=== PATIENT | female | born 1985 | race Hispanic/Latino ===

== ENCOUNTER 2017-05-02 02:53 | Inpatient (IN) | payer BC, SELFPAY ==
[2017-05-02] MEDS ORDERED: niCARdipine 20MG In NaCl 20 MG/200 ML BAG ONE (03:18)
[2017-05-02] MEDS ORDERED: Ondansetron HCl/PF 4 MG/2 ML Vial ONE (03:43)
[2017-05-02 03:51] LABS: Hematocrit 40.1 % (36.0-47.0); Mean Platelet Volume 8.2 fL (7.4-10.4); Red Blood Cell (RBC) Count 5.58 mill/uL (4.20-5.40); White Blood Cell (WBC) Count 11.4 thou/uL (4.8-10.8)
[2017-05-02 04:04] LABS: ALT (SGPT) 11 U/L (8-55); AST (SGOT) 16 U/L (5-34); Acetaminophen Less than 6.0 mcg/mL (10.0-30.0); Alkaline Phosphatase 122 U/L (40-150); Anion Gap 15 mmol/L (10-20); BUN (Urea Nitrogen) 9 mg/dL (7.0-18.7); Bilirubin, Total 0.3 mg/dL (0.2-1.2); CK (CPK) 76 U/L (29-168); Calc. Creatinine Clearance 0 mL/min (70-130); Calcium 9.7 mg/dL (7.8-10.44); Carbon Dioxide 22 mmol/L (22-29); Chloride 105 mmol/L (98-107); Estimated GFR-MDRD 82; Globulin 2.6 g/dL (2.4-3.5); Lipase 21 U/L (8-78); Protein, Total 6.8 g/dL (6.0-8.3); Prothrombin Time 12.9 SEC (12.0-14.7); Salicylate Less than 8.0 mg/dL (15.0-30.0)
[2017-05-02 04:05] LABS: PTT 29.6 SEC (22.9-36.1)
[2017-05-02 04:07] LABS: Troponin I Less than 0.010 ng/mL (< 0.028)
[2017-05-02 04:10] LABS: #Eosinphils 0.2 thou/uL (0.0-0.7); #Lymphocytes 1.6 thou/uL (1.20-3.40); #Monocytes 0.8 thou/uL (0.11-0.59); #Neutrophils 8.8 thou/uL (1.40-6.50); %Basophils 0.2 % (0.0-1.0); %Eosinophils 2.1 % (0.0-10.0); %Lymphocytes 13.9 % (21.0-51.0); %Monocytes 6.7 % (0.0-10.0); Microcytosis SLIGHT = 6-15 cells (100X) (0-5/hpf)
[2017-05-02] MEDS ORDERED: Acetaminophen 650 MG Suppository PR PRN (04:43)
[2017-05-02] MEDS ORDERED: Acetaminophen 325 MG TAB PO PRN ×2 (04:43→11:42)
[2017-05-02] MEDS ORDERED: Bisacodyl 5 MG TAB PO PRN (04:43)
[2017-05-02] MEDS ORDERED: Labetalol HCl 100 MG/20 ML VIAL SLOW IVP PRN (04:57)
[2017-05-02] MEDS ORDERED: niCARdipine 20MG in NaCl 200 ML BAG IVPB PRN (04:57)
[2017-05-02] MEDS ORDERED: niCARdipine HCl 25 MG in Sodium Chloride 0.9% 250 ML 240 ML IVPB PRN (05:02)
[2017-05-02 05:08] LABS: Bilirubin Negative (Negative); Blood, Urine Negative (Negative); Glucose, Urine (Dipstick) Negative (Negative); Ketone, Urine Negative (Negative); Nitrite Negative (Negative); Protein, Urine (Dipstick) 300 mg/dL (Neg-Trace); Urobilinogen 0.2 mg/dL (0.2-1.0)
[2017-05-02 05:10] LABS: Bacteria/HPF None Seen HPF (None Seen); Hyaline Casts/LPF 0-3 HYALINE CAST LPF (0-3 Hyaline); RBC/HPF 0-3 HPF (0-3); Squamous Epithelial 0-3 HPF (0-3); WBC/HPF 0-3 HPF (0-3)
[2017-05-02 05:44] LABS: Amphetamine Detected (NotDetected); Methamphetamine Not Detected (NotDetected)
[2017-05-02 05:45] LABS: Methadone Not Detected (NotDetected)
--- NOTE | 2017-05-02 05:46 | HP ---
PRIMARY CARE PROVIDER: [facility] [place]. CHIEF COMPLAINT: Weakness. HISTORY OF PRESENT ILLNESS: Ms. Alves is a pleasant 31-year-old lady who was seen at [facility] on 05/02/2017. She is able to provide some history. Further history was obtain ed from review of medical records as well as discussion with the emergency room physician, who obtain ed most of the history from Ms. Alves's . Ms. Alves was last known to be doing well around midnight. Around 2:00 a.m., she was found with we akness of the left upper and lower extremities. She also reportedly had a headache yesterday while a t work. Patient denies any chest pain or shortness of breath. She denies any fevers or chills. REVIEW OF SYSTEMS: The following complete review of systems was negative, unless otherwise mentioned in the HPI or below: Constitutional: Weight loss or gain, sense of well-being, ability to conduct usual activities, exerc ise tolerance. Skin/Breast: Rash, itching, changes in hair growth or loss, nail changes, breast lumps, tenderness, swelling, nipple discharge. Eyes: Vision, double vision, tearing, blind spots, pain. ENT/Mouth: Headaches (location, time of onset, duration, precipitating factors), vertigo, lightheade dness, injury. Vision, double vision, tearing, blind spots, pain, nose bleeding, colds, obstruction, discharge, dental difficulties, gingival bleeding, dentures, neck stiffness, pain, tenderness, masses in thyroid or other areas. Cardiovascular: Precordial pain, substernal distress, palpitations, syncope, dyspnea on exertion, or thopnea, nocturnal paroxysmal dyspnea, edema, cyanosis, hypertension, heart murmurs, varicosities, ph lebitis, claudication. Respiratory: Pain, shortness of breath, wheezing, stridor, cough, hemoptysis, fever or night sweats. Gastrointestinal: Poor appetite, dysphagia, indigestion, abdominal pain, heartburn, eructation, naus ea, vomiting, hematemesis, jaundice, constipation, or diarrhea, abnormal stools (luke-colored, tarry, bloody, greasy, foul smelling), flatulence, hemorrhoids, recent changes in bowel habits. Genitourinary: Urgency, frequency, dysuria, nocturia, hematuria, polyuria, oliguria, unusual (or william nge in) color of urine, stones, hesitancy, change in size of stream, dribbling, acute retention or in continence, libido, potency. Musculoskeletal: Pain, swelling, redness or heat of muscles or joints, limitation, of motion, muscul ar weakness, atrophy, cramps. Neurologic/Psychiatric: Convulsions, paralyses, tremor, incoordination, parasthesias, difficulties w ith memory of speech, sensory or motor disturbances, or muscular coordination (ataxia, tremor), emoti onal problems, anxiety, depression, previous psychiatric care, unusual perceptions, hallucinations. Allergy/Immunologic: Skin rash, anemia, bleeding tendency, polydipsia, polyuria, intolerance to heat or cold. PAST MEDICAL HISTORY: Hypertension. PAST SURGICAL HISTORY: None. FAMILY HISTORY: No family history of cerebrovascular accident. SOCIAL HISTORY: The patient denies tobacco use, alcohol use or recreational drug use. ALLERGIES: SULFA. CURRENT MEDICATIONS: Lisinopril, dose to be clarified. PHYSICAL EXAMINATION: GENERAL: Ms. Alves is awake, alert, not in acute distress. VITAL SIGNS: Blood pressure is 184/124. Pulse is 79. She is breathing at rate of 16, and saturatin g 100% on room air. She is afebrile. She is obese. EYES: She is keeping her eyes closed. When she opens them, she has strabismus. She reports that th is is chronic. She is unable to follow finger movements. ENT: Moist mucosal membranes, no oropharyngeal erythema or exudates. NECK: Supple, nontender, normal range of movement. Trachea is midline. RESPIRATORY: Accessory muscles of breathing are not active. Chest wall movements are symmetric bila terally. LUNGS: Clear to auscultation without wheeze, rhonchi or crepitations. CARDIOVASCULAR: S1 and S2 are heard, regular. Peripheral pulses palpable. No carotid bruit, no per icardial rub. ABDOMEN: Soft, nontender, bowel sounds are heard. No hepatomegaly, no splenomegaly. NEUROLOGIC: Pupils are equal and reactive to light. Strabismus as described earlier. Otherwise, cr anial nerves II through XII are intact. Left upper extremity power is 1/5, left lower extremity fawn r is 4/5, power is 5/5 in the right extremities. No focal sensory deficits. Deep tendon reflexes ar e 2+. Plantar reflexes downgoing bilaterally. MUSCULOSKELETAL: Power in the 4 extremities, as described earlier. SKIN: No rashes or subcutaneous nodules. PSYCHIATRIC: Normal mood, normal affect, patient is oriented to person and place, not to time. LYMPHATIC: No cervical lymphadenopathy. LABORATORY DATA AND IMAGING: Ms. Alves's labs and investigations were reviewed. I reviewed her te lemetry monitor, which shows normal sinus rhythm. She is awaiting a 12-lead electrocardiogram. I al so reviewed her chest x-ray, which does not show any pulmonary infiltrates. She had a noncontrast CT scan of the head, which showed bilateral basal ganglia and calcifications, but no acute stroke or bl eed. Laboratory investigations show leukocytosis with 11,400 white cells, of which 77% are neutrophi ls, normal hemoglobin, normal platelet count, INR 1.0, unremarkable comprehensive metabolic profile, negative serum test and elevated TSH of 5.0051. BNP is less than 10. Troponin I is normal . Serum toxicology screen is negative. Urine drug screen is pending. ASSESSMENT AND PLAN: Ms. Alves is a pleasant 31-year-old lady who was seen at [facility] on 05/02/2017. Her problem list includes: 1. Ischemic stroke: Ms. Alves is presenting with an ischemic stroke. The emergency room fabrizio augustine is starting her on TPA. Patient will be admitted to the Critical Care Unit for further management. No blood draws or anticoagulants for the next 24 hours. Neurology service will be consulted. She is also awaiting CT angiogram of the head and neck. 2. Hypertension: Start Cardene drip and p.r.n. IV labetalol. 3. Elevated TSH: Check free T3 and free T4. 4. Leukocytosis: The patient is afebrile. Recheck white count. Check urinalysis to rule out infec tion. Many thanks for allowing me to participate in your patient's care. Please feel free to contact me wi th any questions or concerns. LEVEL OF RISK: High. LEVEL OF COMPLEXITY: High.
[2017-05-02 05:49] LABS: Free T3 4.11 pg/mL (1.71-3.71)
[2017-05-02] MEDS ORDERED: Heparin 10,000 UNITS/1 ML VIAL ONE ×2 (06:16→07:33)
[2017-05-02] MEDS ORDERED: Fentanyl 100 MCG/2 ML VIAL ONE (07:17)
[2017-05-02] MEDS ORDERED: Ondansetron HCl/PF 4 MG/2 ML Vial IVP PRN (07:45)
[2017-05-02] MEDS ORDERED: Sodium Chloride 0.9% 1,000 ML IV SCH (07:45)
[2017-05-02] MEDS ORDERED: Ondansetron ODT 4 MG TAB SL PRN (07:45)
--- NOTE | 2017-05-02 08:15 | RAD ---
PORTABLE CHEST 1 VIEW: Date: 05/02/17 Time: 0339 hours HISTORY: Altered mental status. FINDINGS: The heart size is normal. No focal areas of consolidation, pneumothorax, kassy pulmonary edema, or pl eural effusions are seen. IMPRESSION: No acute process. POS: [facility]
--- NOTE | 2017-05-02 08:24 | CT ---
PRELIMINARY REPORT/[facility]/EMERGENCY AFTER HOURS PROCEDURE: Addendum created by Bhaskar Crane MD on 05/02/2017 3:27 AM Central Time ([place] & [place]) Additional review of the images was performed and there is subtle decreased attenuation involving the right temporal, parietal and frontal lobes with decreased su / white differentiation on the right and early sulcal effacement which are suggestive of an early but large right MCA distribution infarct . Findings discussed with Dr. Rick at 3:24 AM ELECTROSTATIC POWDER COATING TECHNICIAN date of exam. Initial Report created on 05/02/2017 3:20 AM Central Time ([place] & [place]) EXAM: CT Head Without Intravenous Contrast CLINICAL HISTORY: 31 years old, female; Signs and symptoms; Weakness, extremity; Left; Patient HX: Stroke alert TECHNIQUE: Axial computed tomography images of the head/brain without intravenous contrast. COMPARISON: No relevant prior studies available. FINDINGS: Brain: No acute findings. No hemorrhage. No significant white matter disease. No edema. There are mo ateral basal ganglion calcifications. Ventricles: No acute findings. No ventriculomegaly. Bones/joints: No acute findings. No acute fracture. Soft tissues: No acute findings. Sinuses: No acute sinusitis. Nonspecific lobulated mucosal reaction right maxillary sinus. Mastoid air cells: Unremarkable as visualized. No mastoid effusion. IMPRESSION: No acute stroke or bleed. Bilateral basal ganglion calcifications, somewhat atypical for patient of this age. These can be seen as a result of numerous etiologies including disorders of calcium metabolism, Devin disease, carbon monoxide poisoning, and mitochondrial disorders amongst other etiologies. Thank you for allowing us to participate in the care of your patient. Dictated and Authenticated by: Bhaskar Crane MD 05/02/2017 3:20 AM Central Time ([place] & [place]) FINAL REPORT EMERGENCY AFTER HOURS CT OF BRAIN PERFORMED WITHOUT CONTRAST ENHANCEMENT: Date: 05/02/17 HISTORY: Left-sided weakness, stroke symptoms. FINDINGS: The ventricular and cisternal system is within normal limits. There are no signs of intracerebral hem orrhage or extra-axial fluid collections. Basal ganglia calcifications are noted. There is sphenoid and right maxillary sinus mucosal disease noted. IMPRESSION: No acute intracranial abnormalities. This report is in agreement with the preliminary report issued by [facility]. POS: [facility]
--- NOTE | 2017-05-02 08:38 | CON ---
DATE OF CONSULTATION: 05/02/2017 HISTORY OF PRESENT ILLNESS: Ms. Alves is a 31-year-old female with history significant for hypertension and morbid obesity. The history I obtained was from the patient's mother. Ms. Alves was present at home and known to be normal until around midnight where she collapsed with abrupt onset of left hemiparesis. She was brought to the emergency department where she underwent a noncontrast head CT, which was negative for hemorrhage. She underwent TPA administration. She also had a CT angiogram study performed of the head, which suggested occlusion of the M1 segment of the middle cerebral artery. She was densely hemiparetic, but able to speak. She did have increased somnolence. After evaluating the patient and meeting with the patient's mother as well as other family and friends, a decision was made to take her to the angiogram suite for cerebral angiography with the potential for mechanical thrombectomy. I did review with everyone the risks, benefits, and alternatives to treatment. I answered all their questions and they provided informed consent. The plan will be to perform the procedure with subsequent admission to the ICU with subsequent management with our multidisciplinary stroke team. JULISSA
--- NOTE | 2017-05-02 08:55 | CT ---
PRELIMINARY REPORT/[facility]/EMERGENCY AFTER HOURS PROCEDURE: EXAM: CT Brain Perfusion With Intravenous Contrast CLINICAL HISTORY: 31 years old, female; Signs and symptoms; Weakness; Patient HX: Left sided weakness, R/O stroke TECHNIQUE: Axial computed tomography images of the brain with intravenous contrast using cerebral perfusion prot ocol. Post-processing parametric maps were created and reviewed. These include cerebral blood flow, c erebral blood volume and mean transit time. CONTRAST: 140 mL of ISOVUE administered intravenously. COMPARISON: CT Brain WO Con 2017-05-02 03:01 FINDINGS: Cerebral blood flow: There is decreased blood flow in the right frontal and parietal lobes. Cerebral blood volume: There is decreased blood volume in the right frontal and parietal lobes. Mean transit time: There is increased mean transit time in the right frontal and parietal lobes. There is marked narrowing of the right ICA as it enters the skull base, throughout it's canalicular p ortion, with occlusion at the apex. There is also occlusion of the right ophthalmic artery The left I CA is normal. There is occlusion of the origin of the right MCA with mild filling more distally and attenuation of the branches relative to the left. The left MCA appears normal. There is no evidence of aneurysm. The vertebral arteries are patent. The basilar artery is normal in caliber. Both posterior cerebral arteries are without evidence of stenosis or occlusion. 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 Matched regions of increased transit time with decreased cerebral blood volume and cerebral blood jason w throughout the right MCA distribution consistent with an infarct but no surrounding region of luis ge of the ischemic tissue. THIS REPORT CONTAINS FINDINGS THAT MAY BE CRITICAL TO PATIENT CARE. The findings were verbally commun icated via telephone conference with Bernie Rick at 3:24 AM MANAGER GENERAL on 05/02/2017. The findings were acknowl edged and understood. Thank you for allowing us to participate in the care of your patient. Dictated and Authenticated by: Kentrell Hoyos MD 05/02/2017 6:06 AM Central Time ([place] & [place]) FINAL REPORT EMERGENCY AFTER HOURS CTA BRAIN: Date: 05/02/17 Preliminary exam was performed by [facility]. Contrast enhanced CTA of the brain is performed. 2D and 3D reconstructed images performed on an [employer] 3D workstation. In addition, perfusion imaging also performed. CTA images demonstrate what appears to be asymmetric decreased flow in the right petrous and cavernou s ICA. Proximal ICA was not evaluated. There is decreased flow in the right MCA vessels. There is occ lusion of flow to the right ophthalmic artery. There is decreased area of flow with increased mean tr ansit time in the right anterior MCA. These areas are associated with decreased blood volume and bloo d flow suggesting core infarction without salvageable penumbra. There is also decreased visualization of the more distal MCA branches and some loss of the su-white junction in the right frontal and parietal regions. I concur with the dictation from [facility]. POS: [facility]
[2017-05-02] MEDS: niCARdipine HCl 25 MG in Sodium Chloride 0.9% 250 ML 240 ML IVPB SCH ×2 (10:07→17:04)
--- NOTE | 2017-05-02 11:38 | PDOC.PN ---
- Subjective Encounter Start Date: 05/02/17 Encounter Start Time: 11:00 Subjective: is post [facility] procedure, lethargic a bit -: no sob - Objective MAR Reviewed: Yes Vital Signs & Weight: Vital Signs (12 hours) Temp Pulse Ox 05/02/17 09:00 97.6 F 05/02/17 08:54 98 Weight Weight 257 lb 4.471 oz Most Recent Monitor Data Heart Rate from ECG 98 NIBP 171/112 NIBP BP-Mean 128 Respiration from ECG 23 SpO2 99 I&O: 05/01/17 05/02/17 05/03/17 06:59 06:59 06:59 Output Total 1500 Balance -1500 Result Diagrams: 05/02/17 03:19 05/02/17 03:19 Phys Exam - Physical Examination HEENT: PERRLA, sclera anicteric Neck: no JVD, supple Respiratory: no wheezing, no rales Cardiovascular: RRR, no significant murmur Gastrointestinal: soft, non-tender, positive bowel sounds Musculoskeletal: no edema, pulses present left hemiplegia Dx/Plan (1) Acute CVA (cerebrovascular accident) Code(s): I63.9 - CEREBRAL INFARCTION, UNSPECIFIED Status: Acute Comment: with left hemiplegia, s/p tPA and [facility] procedure (2) Hypertension, uncontrolled Code(s): I10 - ESSENTIAL (PRIMARY) HYPERTENSION Status: Acute (3) Substance abuse Code(s): F19.10 - OTHER PSYCHOACTIVE SUBSTANCE ABUSE, UNCOMPLICATED Status: Acute (4) Obesity Code(s): E66.9 - OBESITY, UNSPECIFIED Status: Chronic Qualifiers: Obesity classification: adult class 3 (BMI >= 40) Body mass index: BMI 40.0 -44.9 (5) Hypothyroidism Code(s): E03.9 - HYPOTHYROIDISM, UNSPECIFIED Status: Acute Qualifiers: Hypothyroidism type: unspecified Qualified Code(s): E03.9 - Hypothyroidism , unspecified - Plan is on cardene drip until she can take orally -: had initial tPA, then [facility] procedure this am -: still has dense left hemiplegia, will re-eval later today -: uds +ve for amphetamines -: oral diet when more awake-heart healthy, stroke protocol * . Review of Systems - Medications/Allergies Allergies/Adverse Reactions: Allergies Allergy/AdvReac Type Severity Reaction Status Date / Time Sulfa (Sulfonamide Allergy Verified 05/02/17 04:55 Antibiotics) Medications: Current Medications Sodium Chloride (Normal Saline 0.9%) 1,000 mls @ 70 mls/hr IV .[id number] MELVA Stop: 05/02/17 16:15 Nicardipine HCl 25 mg/ Sodium (Chloride) 250 mls @ 0 mls/hr IVPB INF MELVA; Titrate PRN Reason: Protocol Last Admin: 05/02/17 10:07 Dose: 250 mls Ondansetron HCl (Zofran) 4 mg IVP Q6H PRN PRN Reason: Nausea/Vomiting Stop: 05/02/17 16:15 Last Admin: 05/02/17 10:03 Dose: 4 mg Ondansetron HCl (Zofran Odt) 4 mg SL Q6H PRN PRN Reason: Nausea/Vomiting Stop: 05/02/17 16:15 Pantoprazole Sodium (Protonix) 40 mg IVP 2100 MELVA Sodium Chloride (Flush - Normal Saline) 10 ml IVF PRN PRN PRN Reason: Saline Flush Stop: 05/02/17 16:15 Sodium Chloride (Flush - Normal Saline) 10 ml IV 2100 MELVA
[2017-05-02] MEDS: Pantoprazole 40 MG VIAL IVP SCH (12:48)
[2017-05-02] MEDS ORDERED: ISOVUE-370 76%-LOCM 1 ML ONE (13:34)
[2017-05-02] MEDS ORDERED: Dexamethasone 10 MG/ML VIAL SLOW IVP SCH (14:45)
[2017-05-02] MEDS: Dextrose 5 % And 0.9 % NaCl 1,000 ML IV SCH (14:46)
[2017-05-02] MEDS ORDERED: Ondansetron HCl/PF 4 MG/2 ML Vial SLOW IVP SCH (15:30)
--- NOTE | 2017-05-02 15:41 | CCL ---
DATE: 05/02/17 SURGEONS: Dany Dudley M.D. SALES EXHIBITOR: None. INDICATION: Ischemic stroke. DIAGNOSIS: Ischemic stroke. PROCEDURE: Cerebral angiography with mechanical thrombectomy. ANESTHESIA: General. TECHNIQUE: The patient was brought into the angiogram suite and placed on the table in supine position. 1% lidocaine was used to inject the right groin. A 5 Tunisian micropuncture set was used to gain access to the right common femoral artery. Using a Seldinger technique, an 8 Tunisian sheath was placed. A diagnostic catheter was passed over a Bentson wire into the aortic arch where the right common carotid artery was selectively catheterized. We then catheterized the right internal carotid artery where an AP and lateral angiogram was performed. The angiogram revealed the presence of occlusion of the distal aspect of the right internal carotid artery. There is no flow into the middle cerebral artery or the anterior cerebral arteries. There was anterograde flow into the ophthalmic artery. The patient was then placed under general anesthesia. A concentric guide 8 Tunisian catheter was passed over a 130 cm Bentson catheter which was then passed over a Bentson guide wire which was then placed within the right internal carotid artery. The Trevo microcatheter passed over a transcend microguidewire. Was then advanced it into the distal aspect of the internal carotid artery into the A1 segment on the right side of the anterior cerebral artery. The Trevo device was deployed a total of 3 times. There was presybeterian of flow into the distal internal carotid artery as well as sluggish but patent flow into the anterior cerebral artery from the right side. At no time was I able to pass a micro- guidewire into the middle cerebral artery. There were numerous attempts. It is my belief there is likely a very solid thrombus at the orifice of the middle cerebral artery. It was also noted the patient had some vasospasm along the proximal aspect of the right internal carotid artery. This did not appear to be flow limiting. All catheters were then removed. The sheath was sewn in as the patient received TPA prior to the angiogram. The procedure came to an end without known complication. IMPRESSION: Cervical angiography revealed the presence of complete occlusion of the right internal carotid artery without flow into the distal XOCHITL and MCA territories. Following mechanical thrombectomy, flow was restored into the distal internal carotid artery as well as the right A1 segment of the anterior cerebral artery. The flow was not restored into the middle cerebral artery on the right side. [facility]
[2017-05-02] MEDS ORDERED: Morphine 4 MG/ML VIAL ONE (15:50)
[2017-05-02] MEDS ORDERED: Iopamidol 370 76% 100 ML VIAL ONE (16:27)
[2017-05-02] MEDS ORDERED: Propofol 200 MG/20 ML VIAL ONE (17:22)
[2017-05-02] MEDS ORDERED: Lidocaine 1% PF 5 ML VIAL ONE (17:22)
[2017-05-02] MEDS ORDERED: Glycopyrrolate 0.2 MG/ML 5 ML SYRINGE ONE (17:22)
[2017-05-02] MEDS ORDERED: Succinylcholine Chloride 20 MG/ML 10 ml SYRINGE FS ONE (17:22)
[2017-05-02] MEDS: Docusate 100 MG CAP PO SCH (20:41)
[2017-05-02] MEDS: Morphine 4 MG/ML VIAL SLOW IVP PRN (22:51)
[2017-05-02] MEDS: Ondansetron HCl/PF 4 MG/2 ML Vial IVP PRN (22:51)
--- NOTE | 2017-05-03 01:04 | CON ---
DATE OF CONSULTATION: 05/02/2017 HISTORY OF PRESENT ILLNESS: Joselyn is a 31-year-old female. She presented with left upper extremit y and lower extremity weakness. She was transferred from [facility]. She underwent head and neck CT angiogram with brain perfusion. She was found to have probable dissec tion of intracanalicular portion of the right internal carotid with occlusion of the apex, the origin of the right middle cerebral artery, and right ophthalmic artery. She received tPA and Dr. Dudley wa s consulted. She underwent cerebral angiography last night for possible mechanical thrombectomy. She remains hemiparetic with difficulty with speech. She is very slow to respond to questions. PAST MEDICAL HISTORY: Remarkable for obesity and hypertension. FAMILY HISTORY: Negative for lung disease at an early age. SOCIAL HISTORY: She denies using drugs. She is able to answer questions slowly. She is not a drink er. ALLERGIES: She reports an allergy to SULFA. MEDICATIONS: She was on lisinopril prior to admission. PHYSICAL EXAMINATION: GENERAL: She is afebrile. She is on a Cardene drip. VITAL SIGNS: Blood pressure has been in the 150s, diastolics has been in the 90s-100s, heart rates a round 100, respiratory rates 15 to slow 20. HEENT: She is protecting her airway. Sclerae is anicteric. NECK: Supple. LUNGS: Clear anteriorly. HEART: Regular rhythm. No murmurs heard. ABDOMEN: Soft. EXTREMITIES: Without asymmetry. LABORATORY DATA: White count 11.4, hemoglobin 13.2, platelets 389. Electrolytes are normal. Renal function is normal. TSH is borderline elevated. IMPRESSION: 1. Thrombotic cerebrovascular accident, status post tPA and cerebral angiography by Dr. Dudley. 2. Hypothyroidism with a mildly elevated TSH. This could be followed as an outpatient. 3. Hypertension. 4. Positive drug screen, although she adamantly denies that she ever uses drugs. The drug was amphe tamine and sensitivity and specificity of the test, but the multiple drug screen is not very good, re caioy does not change her management at this time, so there is no reason to send out confirmatory drug screen. We will continue to take care of her in the ICU until she meets criteria for transfer to [facility] stroke unit.
[2017-05-03] MEDS: niCARdipine HCl 25 MG in Sodium Chloride 0.9% 250 ML 240 ML IVPB SCH ×2 (01:29→16:58)
[2017-05-03] MEDS: Morphine 4 MG/ML VIAL SLOW IVP PRN ×2 (03:06→05:45)
[2017-05-03 04:32] LABS: #Eosinphils 0.1 thou/uL (0.0-0.7); #Lymphocytes 0.9 thou/uL (1.20-3.40); #Monocytes 0.6 thou/uL (0.11-0.59); #Neutrophils 16.5 thou/uL (1.40-6.50); %Eosinophils 0.3 % (0.0-10.0); %Lymphocytes 5.2 % (21.0-51.0); %Monocytes 3.3 % (0.0-10.0); Hematocrit 38.7 % (36.0-47.0); Mean Platelet Volume 7.9 fL (7.4-10.4); White Blood Cell (WBC) Count 18.2 thou/uL (4.8-10.8)
[2017-05-03 04:47] LABS: ALT (SGPT) 10 U/L (8-55); AST (SGOT) 15 U/L (5-34); Alkaline Phosphatase 114 U/L (40-150); Anion Gap 12 mmol/L (10-20); BUN (Urea Nitrogen) 7 mg/dL (7.0-18.7); Bilirubin, Total 0.3 mg/dL (0.2-1.2); Calc. Creatinine Clearance 203 mL/min (70-130); Calcium 9.1 mg/dL (7.8-10.44); Carbon Dioxide 24 mmol/L (22-29); Chloride 105 mmol/L (98-107); Estimated GFR-MDRD Greater than 90; Globulin 2.5 g/dL (2.4-3.5); Protein, Total 6.3 g/dL (6.0-8.3)
[2017-05-03] MEDS: Ondansetron HCl/PF 4 MG/2 ML Vial IVP PRN (05:45)
[2017-05-03] MEDS: Citalopram 20 MG TAB PO SCH (08:44)
[2017-05-03] MEDS: Docusate 100 MG CAP PO SCH ×2 (08:44→19:48)
[2017-05-03] MEDS: Dextrose 5 % And 0.9 % NaCl 1,000 ML IV SCH (09:12)
[2017-05-03] MEDS ORDERED: niCARdipine 20MG In NaCl 20 MG/200 ML BAG IVPB SCH (09:45)
[2017-05-03 12:04] LABS: PTT 29.2 SEC (22.9-36.1); Prothrombin Time 13.5 SEC (12.0-14.7)
--- NOTE | 2017-05-03 12:31 | MRI ---
NONCONTRAST ENHANCED MRI BRAIN: Date: 05/03/17 HISTORY: Stroke. TECHNIQUE: Noncontrast enhanced MRI brain obtained. FINDINGS: There is large right frontal anterior temporal and right parietal, as well as basal ganglion areas of signal abnormality with edema and diffusion restriction. This is compatible with a large right anter ior circulation distribution area of stroke involving the XOCHITL and right MCA branches. There is 8.2 mm of midline shift from right to left. No evidence of hydrocephalus is seen. Normal flow-voids not see n in the right MCA branches. IMPRESSION: Large XOCHITL and MCA distribution area of stroke with acute edema and midline shift. POS: [facility]
--- NOTE | 2017-05-03 13:31 | CON ---
DATE OF CONSULTATION: 05/03/2017 CONSULTING PHYSICIAN: Hospitalist Service. IMPRESSION: 1. Right middle cerebral artery infarct. 2. Hypertension. 3. Obesity. PLAN: 1. Discontinue hormones. 2. Hypercoagulation panel. 3. MRI of the brain. 4. Determined course of treatment based on the findings. HISTORY OF PRESENT ILLNESS: Ms. Alves is a 31-year-old black female who came in with complaints of left-sided weakness. CTA revealed evidence of a right M1 segment clot. She was administered TPA. Dr. Dudley was consulted and attempted GABINO procedure that apparently was unsuccessful. She has been admitted to the Intensive Care Unit. Her vital signs have been stable. She has not shown a great d eal of improvement in her left-sided weakness. PAST MEDICAL HISTORY: Lupus, hypertension, obesity. MEDICATIONS: Included hormone therapy. ALLERGIES: SULFA. SOCIAL HISTORY: Unknown. FAMILY HISTORY: Unknown. REVIEW OF SYSTEMS: Not obtainable. PHYSICAL EXAMINATION: VITAL SIGNS: Blood pressure 155/94, pulse 54, respirations 23 and saturation 100%. HEENT: Pupils equal and reactive. Conjunctivae clear. NECK: No lymphadenopathy. EXTREMITIES: No cyanosis. NEUROLOGIC: She is lying quietly with her eyes closed. She uses her right hand to touch her face, b ut could not get her to communicate with me. There is some subtle flattening of the left nasolabial fold. Tone on the left side was diminished. Plantar responses upgoing on the left and downgoing on the right. No abnormal movements were seen. Gait was not testable. SUMMARY: This is an unfortunate young woman, who suffered a thrombus resulting in left hemiparesis. Will complete her workup including echocardiogram and laboratory studies.
--- NOTE | 2017-05-03 13:40 | PDOC.PN ---
- Subjective Encounter Start Date: 05/03/17 Encounter Start Time: 11:00 Subjective: moves right extremities -: does not open eyes or communicate - Objective MAR Reviewed: Yes Vital Signs & Weight: Vital Signs (12 hours) Temp Pulse Resp BP Pulse Ox 05/03/17 12:00 98.3 F 551 H 18 163/85 H 05/03/17 08:00 97.7 F 56 L 15 100 05/03/17 07:51 56 L 16 138/78 05/03/17 07:00 97.7 F 05/03/17 04:00 98.1 F Weight Admit Weight 257 lb Weight 258 lb 6.108 oz Most Recent Monitor Data Heart Rate from ECG 55 NIBP 155/94 NIBP BP-Mean 109 Respiration from ECG 19 SpO2 99 I&O: 05/02/17 05/03/17 05/04/17 06:59 06:59 06:59 Intake Total 1788 0 Output Total 3820 380 Balance [id number] Result Diagrams: 05/03/17 04:15 05/03/17 04:15 Phys Exam - Physical Examination HEENT: moist MMs, sclera anicteric Neck: no JVD, supple Respiratory: no wheezing, no rales Cardiovascular: RRR, no significant murmur Gastrointestinal: soft, non-tender, positive bowel sounds Musculoskeletal: no edema, pulses present dense left hemiplegia, ?aphasia/dysphagia Dx/Plan (1) Acute CVA (cerebrovascular accident) Code(s): I63.9 - CEREBRAL INFARCTION, UNSPECIFIED Status: Acute Comment: with left hemiplegia, s/p tPA and Kelly procedure (2) Hypertension, uncontrolled Code(s): I10 - ESSENTIAL (PRIMARY) HYPERTENSION Status: Acute (3) Substance abuse Code(s): F19.10 - OTHER PSYCHOACTIVE SUBSTANCE ABUSE, UNCOMPLICATED Status: Acute (4) Obesity Code(s): E66.9 - OBESITY, UNSPECIFIED Status: Chronic Qualifiers: Obesity classification: adult class 3 (BMI >= 40) Body mass index: BMI 40.0 -44.9 (5) Hypothyroidism Code(s): E03.9 - HYPOTHYROIDISM, UNSPECIFIED Status: Chronic Qualifiers: Hypothyroidism type: unspecified Qualified Code(s): E03.9 - Hypothyroidism , unspecified - Plan speech eval, ?peg tube -: on asp, crestor -: cardene prn -: has midline shift with edema due to massive right MCA stroke -: PT/OT eval, tx to stroke unit if pt is off cardene drip * . Review of Systems - Medications/Allergies Allergies/Adverse Reactions: Allergies Allergy/AdvReac Type Severity Reaction Status Date / Time Sulfa (Sulfonamide Allergy Verified 05/02/17 04:55 Antibiotics) Medications: Current Medications Acetaminophen (Tylenol) 650 mg PO Q6H PRN PRN Reason: fever/pain Aspirin (Aspirin Chewable) 81 mg PO DAILY MELVA Citalopram Hydrobromide (Celexa) 10 mg PO DAILY [facility] Last Admin: 05/03/17 08:44 Dose: Not Given Docusate Sodium (Colace) 100 mg PO BID MELVA Last Admin: 05/03/17 08:44 Dose: Not Given Dextrose/Sodium Chloride (D5 0.9% Ns) 1,000 mls @ 50 mls/hr IV .Q20H MELVA Last Admin: 05/03/17 09:12 Dose: 1,000 mls Nicardipine/Sodium Chloride (Cardene) 20 mg in 200 mls @ 0 mls/hr IVPB INF MELVA ; Titrate PRN Reason: Protocol Last Admin: 05/03/17 09:44 Dose: 200 mls Morphine Sulfate (Morphine) 4 mg SLOW IVP Q2H PRN PRN Reason: Pain Last Admin: 05/03/17 05:45 Dose: 4 mg Ondansetron HCl (Zofran) 4 mg IVP Q6H PRN PRN Reason: Nausea/Vomiting Last Admin: 05/03/17 05:45 Dose: 4 mg Pantoprazole Sodium (Protonix) 40 mg IVP 2100 MELVA Last Admin: 05/02/17 12:48 Dose: 40 mg Rosuvastatin Calcium (Crestor) 10 mg PO HS MELVA Last Admin: 05/02/17 20:41 Dose: Not Given Sodium Chloride (Flush - Normal Saline) 10 ml IV 2100 MELVA Last Admin: 05/02/17 20:42 Dose: 10 ml
[2017-05-03] MEDS ORDERED: Mannitol 12.5 GM/50 ML IV SCH ×3 (16:45→17:00)
[2017-05-03] MEDS ORDERED: Aspirin 325 mg Enteric Coated Tablet PO SCH (17:00)
[2017-05-03] MEDS: Dexamethasone 4 mg/ml Vial SLOW IVP SCH ×2 (17:07→22:26)
[2017-05-03] MEDS ORDERED: Propofol 1,000 MG/100 ML VIAL IV ONE ×2 (17:13→19:16)
[2017-05-03] MEDS ORDERED: Phenylephrine 0.25% Nasal Spray 15 ML BOT ONE (17:21)
[2017-05-03] MEDS ORDERED: Vecuronium 10 MG VIAL ONE (17:23)
[2017-05-03 18:35] LABS: Oxyhemoglobin 87.1 % (94.0-97.0); Sodium 137 mmol/L (135-148)
[2017-05-03 18:39] LABS: Mechanical Tidal Volume 600 ml; Mode SIMV; Pressure Support 10 cmH2O; Vent YES
[2017-05-03] MEDS: Pantoprazole 40 MG VIAL IVP SCH (20:36)
--- NOTE | 2017-05-03 21:47 | PRG ---
DATE OF SERVICE: 05/03/2017 Ms. Alves was stable overnight. This morning, she was interactive. She is dysarthric, but would answer questions and make eye contac t. PHYSICAL EXAMINATION: VITAL SIGNS: She is in no distress. HEENT: She is protecting her airway well. Pupils are reactive. She was hemiplegic on the left. LUNGS: Clear anteriorly. HEART: Regular rhythm. ABDOMEN: Soft. Today, she became progressively more hypertensive. Late this afternoon, her right pupil became dilat ed. She became less responsive. She was requiring Cardene to control her blood pressure in increasing doses. She is still spontaneously moving her right upper extremity. MRI was reviewed from this morning. She does have midline shift with a cerebral edema after cerebrov ascular accident. White count 18.2, hemoglobin 12.5, platelets 435,000. Electrolytes were normal. IMPRESSION: Progression of cerebral edema with? early herniation. Neurology and Neurosurgery has be en notified. I recommended because of her declining mental status and intubation. She would not open her mouth. Right nasal trumpet was placed with lidocaine jelly. A 7.5 endotrache al tube was passed through her nares with a bronchoscope guided through her glottis into her trachea without difficulty. She has had some mild epistaxis afterwards which is controlling the neocytosis a nd Afrin nasal drops. She was started on propofol and Cardene and once the medicines were quickly ad justed, her systolic blood pressures were in the 140s. She remained with a dilated pupil. Neurosurgery was at the bedside when I completed her intubation and control of her blood pressure. T altagracia will make decisions regarding the next step in care. Critical care time excluding procedure was 45 minutes.
[2017-05-03] MEDS: Mannitol 12.5 GM/50 ML IV SCH (22:35)
[2017-05-04] MEDS: niCARdipine HCl 25 MG in Sodium Chloride 0.9% 250 ML 240 ML IVPB SCH ×5 (00:19→21:32)
[2017-05-04] MEDS: Propofol 1,000 MG/100 ML VIAL IV PRN ×4 (00:19→21:42)
--- NOTE | 2017-05-04 00:27 | OP ---
PROCEDURE: Fiberoptic bronchoscopy with intubation. Bronchoscope was passed through the endotracheal tube. The endotracheal tube was inserted through he r right naris under the guidance of bronchoscope. The vocal cords were normal. She had some mild up per airway retained secretions which were easily suctioned clear. The trachea was entered and was no rmal. The main romario, right lower lobe, right middle lobe, right upper lobe, left lower lobe and le ft upper lobe were visualized. No endobronchial lesions were seen. All respective segments were jt ckly identified. Endotracheal tube was secured above the main romario. Bilateral equal breath sounds were noted. Scope was withdrawn.
[2017-05-04 05:52] LABS: Osmolality, Serum 330 mOsm/kg (280-295)
[2017-05-04] MEDS: Mannitol 12.5 GM/50 ML IV SCH ×4 (05:55→21:11)
[2017-05-04] MEDS: Dexamethasone 4 mg/ml Vial SLOW IVP SCH ×3 (05:55→17:13)
[2017-05-04] MEDS: Dextrose 5 % And 0.9 % NaCl 1,000 ML IV SCH (05:58)
[2017-05-04 06:04] LABS: Band 2 % (5-11); Hematocrit 45.5 % (36.0-47.0); Mean Platelet Volume 9.9 fL (7.4-10.4); Microcytosis SLIGHT = 6-15 cells (100X) (0-5/hpf); Neutrophil 89 % (42-75); Red Blood Cell (RBC) Count 6.35 mill/uL (4.20-5.40); Target Cells SLIGHT = 2-5 cells (100X) (0-1/hpf)
[2017-05-04 06:52] LABS: ALT (SGPT) 15 U/L (8-55); AST (SGOT) 14 U/L (5-34); Alkaline Phosphatase 129 U/L (40-150); Anion Gap 17 mmol/L (10-20); BUN (Urea Nitrogen) 12 mg/dL (7.0-18.7); Bilirubin, Total 0.5 mg/dL (0.2-1.2); Calc. Creatinine Clearance 120 mL/min (70-130); Calcium 11.2 mg/dL (7.8-10.44); Carbon Dioxide 21 mmol/L (22-29); Chloride 118 mmol/L (98-107); Estimated GFR-MDRD 56; Globulin 3.1 g/dL (2.4-3.5); Protein, Total 7.6 g/dL (6.0-8.3)
[2017-05-04 07:45] LABS: Oxyhemoglobin 97.9 % (94.0-97.0); Sodium 159 mmol/L (135-148); Vent YES
[2017-05-04 07:46] LABS: Mechanical Tidal Volume 500 ml; Mode SIMV; Pressure Support 10 cmH2O
[2017-05-04] MEDS ORDERED: Dextrose 5% in Water 1,000 ML IV SCH (08:15)
--- NOTE | 2017-05-04 08:37 | CT ---
PRELIMINARY REPORT/[facility]/EMERGENCY AFTER HOURS PROCEDURE: EXAM: CT Head Without Intravenous Contrast CLINICAL HISTORY: 31 years old, female; Condition or disease; Other: F/u stroke, mannitol; Additional info: Previous he ad CT from 05/02/2017 read by [facility] TECHNIQUE: Axial computed tomography images of the head/brain without intravenous contrast. COMPARISON: CTA Angio Head W WO Con W Perf 2017-05-02 04:59 FINDINGS: Continued evolution of right anterior and middle cerebral artery infarctions noted in the right front otemporoparietal lobes and right basal ganglia. There is approximately 7 mm shift to the left noted. There is partial effacement of the cisterns. Questioned faint hemorrhagic conversion noted. No hydroc ephalus observed. Question edema versus artifact in the inferior left frontal lobe image 8 Polypoid b ecause of thickening in the maxillary and sphenoid sinuses IMPRESSION: Evolving right MCA and presumed anterior cerebral artery territorial infarctions. Question faint hemo rrhagic conversion. Midline shift to the left of approximately 7 mm Edema versus artifact in the inferior left frontal lobe Thank you for allowing us to participate in the care of your patient. Dictated and Authenticated by: Lopez Perez MD 05/04/2017 3:53 AM Central Time ([place] & [place]) FINAL REPORT CT BRAIN: Date: 05/04/17 Preliminary exam performed by [facility]. I concur with the dictation from [facility]. POS: [facility]
[2017-05-04] MEDS: Aspirin 300 MG Suppository PR SCH (09:49)
[2017-05-04] MEDS: Citalopram 20 MG TAB PO SCH (09:49)
[2017-05-04] MEDS: Docusate 100 MG CAP PO SCH ×2 (09:49→20:45)
--- NOTE | 2017-05-04 11:43 | PDOC.PN ---
- Subjective Encounter Start Date: 05/04/17 Encounter Start Time: 11:30 Subjective: sedated on vent -: mom at bedside - Objective MAR Reviewed: Yes Vital Signs & Weight: Vital Signs (12 hours) Temp Pulse Resp BP 05/04/17 08:00 100.7 F H 136 H 18 151/100 H 05/04/17 07:34 129 H 05/04/17 04:00 98.1 F 120 H 18 154/95 H 05/04/17 01:52 108 H 05/04/17 00:00 98.2 F 106 H 18 148/94 H Weight Admit Weight 257 lb Weight 233 lb 3.2 oz Most Recent Monitor Data Heart Rate from ECG 124 NIBP 146/101 NIBP BP-Mean 121 Respiration from ECG 18 SpO2 100 I&O: 05/03/17 05/04/17 05/05/17 06:59 06:59 06:59 Intake Total 1788 2064 Output Total 3822 6105 420 [id number] -[id number] -420 Result Diagrams: 05/04/17 04:06 05/04/17 04:06 Phys Exam - Physical Examination HEENT: moist MMs, sclera anicteric Neck: no JVD, supple Respiratory: no wheezing, no rales Cardiovascular: RRR, no significant murmur Gastrointestinal: soft, no distention, positive bowel sounds Musculoskeletal: no edema, pulses present left hemiplegia Dx/Plan (1) Acute CVA (cerebrovascular accident) Code(s): I63.9 - CEREBRAL INFARCTION, UNSPECIFIED Status: Acute Comment: with left hemiplegia, s/p tPA and Kelly procedure (2) Hypertension, uncontrolled Code(s): I10 - ESSENTIAL (PRIMARY) HYPERTENSION Status: Acute (3) Substance abuse Code(s): F19.10 - OTHER PSYCHOACTIVE SUBSTANCE ABUSE, UNCOMPLICATED Status: Acute (4) Obesity Code(s): E66.9 - OBESITY, UNSPECIFIED Status: Chronic Qualifiers: Obesity classification: adult class 3 (BMI >= 40) Body mass index: BMI 40.0 -44.9 (5) Hypothyroidism Code(s): E03.9 - HYPOTHYROIDISM, UNSPECIFIED Status: Chronic Qualifiers: Hypothyroidism type: unspecified Qualified Code(s): E03.9 - Hypothyroidism , unspecified - Plan suggest dc mannitol -: is on decadron qid -: cardene drip prn -: echo shows ef of 50%, no thrombus -: d5w gentle hydration, watch for serum osmolality (current 330) * . d/w mom and gave an update, is aware of massive cva with edema, I have shown her CT scan pics on [employer]. Review of Systems - Medications/Allergies Allergies/Adverse Reactions: Allergies Allergy/AdvReac Type Severity Reaction Status Date / Time Sulfa (Sulfonamide Allergy Verified 05/02/17 04:55 Antibiotics) Medications: Current Medications Acetaminophen (Tylenol) 650 mg PO Q6H PRN PRN Reason: fever/pain Aspirin (Aspirin) 300 mg [place] DAILY MELVA Last Admin: 05/04/17 09:49 Dose: 300 mg Citalopram Hydrobromide (Celexa) 10 mg PO DAILY MELVA Last Admin: 05/04/17 09:49 Dose: 10 mg Dexamethasone (Decadron) 10 mg SLOW IVP 0500,1100,1700,2300 MELVA Last Admin: 05/04/17 05:55 Dose: 10 mg Docusate Sodium (Colace) 100 mg PO BID MELVA Last Admin: 05/04/17 09:49 Dose: 100 mg Nicardipine HCl 25 mg/ Sodium (Chloride) 250 mls @ 0 mls/hr IVPB INF MELVA; Titrate PRN Reason: Protocol Last Admin: 05/04/17 06:03 Dose: 250 mls Dextrose/Water (D5w) 1,000 mls @ 50 mls/hr IV .Q20H MELVA Mannitol (Mannitol) 25 gm IV 0500,1100,1700,2300 MELVA Last Admin: 05/04/17 05:55 Dose: Not Given Morphine Sulfate (Morphine) 4 mg SLOW IVP Q2H PRN PRN Reason: Pain Last Admin: 05/03/17 05:45 Dose: 4 mg Ondansetron HCl (Zofran) 4 mg IVP Q6H PRN PRN Reason: Nausea/Vomiting Last Admin: 05/03/17 05:45 Dose: 4 mg Pantoprazole Sodium (Protonix) 40 mg IVP 2100 MELVA Last Admin: 05/03/17 20:36 Dose: 40 mg Propofol (Diprivan) 1,000 mg IV INF PRN; Protocol PRN Reason: TO ACHIEVE RIOS SCORE 2-3 Stop: 06/02/17 20:44 Last Admin: 05/04/17 00:19 Dose: 1,000 mg Rosuvastatin Calcium (Crestor) 10 mg PO HS MELVA Last Admin: 05/03/17 19:49 Dose: Not Given Sodium Chloride (Flush - Normal Saline) 10 ml IV 2100 MELVA Last Admin: 05/03/17 20:36 Dose: 10 ml
[2017-05-04 12:35] LABS: Osmolality, Serum 332 mOsm/kg (280-295)
[2017-05-04] MEDS: Dextrose 5% in Water 500 ML IV SCH (16:45)
[2017-05-04] MEDS ORDERED: Pancrelipase DR 12000 1 CAP FS PRN (19:17)
[2017-05-04] MEDS ORDERED: Sodium Bicarbonate Tab 325 MG TAB PER TUBE PRN (19:17)
[2017-05-04 20:26] LABS: Osmolality, Serum 336 mOsm/kg (280-295)
[2017-05-04] MEDS: Pantoprazole 40 MG VIAL IVP SCH (20:45)
--- NOTE | 2017-05-04 23:16 | PRG ---
DATE OF SERVICE: 05/04/2017 SUBJECTIVE: Her pupils are back to being equally reactive. She has purposeful movement on the right side and will intermittently follow commands. Blood pressure this evening has been up reviewing records from today and her diastolics have been ove r 100 much of the day. She is still on a Cardene drip. PHYSICAL EXAMINATION: LUNGS: Clear. HEART: Regular rhythm. ABDOMEN: Soft. LABORATORY DATA: White count 27, hemoglobin 14.9, platelets 546. Sodium 152, potassium 4.1, chloride 118, bicarb 21, BUN 12, creatinine 1.14. Osmolality is up to [address] this morning showed possible faint hemorrhagic conversion; there is a 7 mm deon ft to the left, right anterior middle cerebral artery infarctions were noted in the frontotemporal pa rietal lobes and the right basil ganglia. IMPRESSION: Cerebral edema after a massive thrombotic cerebrovascular accident with biopsy, early he morrhagic conversion, and early herniation last night that led to intubation. PLAN: Blood pressure control. Continue mechanical ventilation support.
[2017-05-05] MEDS: Dexamethasone 4 mg/ml Vial SLOW IVP SCH ×5 (00:16→22:43)
[2017-05-05] MEDS: Dextrose 5% in Water 500 ML IV SCH ×7 (00:18→20:35)
[2017-05-05] MEDS: Propofol 1,000 MG/100 ML VIAL IV PRN ×5 (03:59→20:09)
[2017-05-05 05:14] LABS: Osmolality, Serum 337 mOsm/kg (280-295)
[2017-05-05] MEDS: Mannitol 12.5 GM/50 ML IV SCH ×4 (05:29→23:29)
[2017-05-05] MEDS: niCARdipine HCl 25 MG in Sodium Chloride 0.9% 250 ML 240 ML IVPB SCH ×4 (07:38→21:38)
[2017-05-05 08:07] LABS: ALT (SGPT) 15 U/L (8-55); AST (SGOT) 14 U/L (5-34); Alkaline Phosphatase 113 U/L (40-150); Anion Gap 19 mmol/L (10-20); BUN (Urea Nitrogen) 20 mg/dL (7.0-18.7); Bilirubin, Total 0.4 mg/dL (0.2-1.2); Calc. Creatinine Clearance 105 mL/min (70-130); Calcium 9.9 mg/dL (7.8-10.44); Carbon Dioxide 23 mmol/L (22-29); Chloride 124 mmol/L (98-107); Estimated GFR-MDRD 47; Globulin 2.2 g/dL (2.4-3.5); Protein, Total 6.3 g/dL (6.0-8.3)
[2017-05-05 08:10] LABS: Band 7 % (5-11); Hematocrit 42.7 % (36.0-47.0); Mean Platelet Volume 8.2 fL (7.4-10.4); Neutrophil 85 % (42-75); Red Blood Cell (RBC) Count 5.81 mill/uL (4.20-5.40); White Blood Cell (WBC) Count 39.3 thou/uL (4.8-10.8)
[2017-05-05 08:32] LABS: Oxyhemoglobin 94.2 % (94.0-97.0); Sodium 162 mmol/L (135-148)
[2017-05-05 08:38] LABS: Modified Allen's Test POSITIVE
[2017-05-05 08:39] LABS: Mechanical Tidal Volume 500 ml; Mode SIMV/PSV; Pressure Support 10 cmH2O; Vent YES
[2017-05-05] MEDS: Aspirin 300 MG Suppository PR SCH (09:51)
[2017-05-05] MEDS: Citalopram 20 MG TAB PO SCH (09:51)
[2017-05-05] MEDS: Docusate 100 MG CAP PO SCH ×2 (09:51→20:10)
--- NOTE | 2017-05-05 10:56 | PDOC.PN ---
- Subjective Encounter Start Date: 05/05/17 Encounter Start Time: 10:40 Subjective: on vent, sedated - Objective MAR Reviewed: Yes Vital Signs & Weight: Vital Signs (12 hours) Temp Pulse Resp BP Pulse Ox 05/05/17 10:00 18 05/05/17 08:02 137 H 167/133 H 05/05/17 08:00 99.7 F H 124 H 17 100 05/05/17 07:00 99.2 F 05/05/17 06:00 19 05/05/17 04:00 100.1 F H 18 05/05/17 02:00 20 05/05/17 00:00 100.1 F H 20 Weight Admit Weight 257 lb Weight 235 lb 12.8 oz Most Recent Monitor Data Heart Rate from ECG 117 NIBP 146/101 NIBP BP-Mean 121 Respiration from ECG 18 SpO2 100 I&O: 05/04/17 05/05/17 05/06/17 06:59 06:59 06:59 Intake Total 2064 3346 Output Total 6105 2975 290 Balance -4041 371 -290 Result Diagrams: 05/05/17 05:00 05/05/17 05:00 Phys Exam - Physical Examination HEENT: PERRLA, sclera anicteric Neck: no JVD, supple Respiratory: no wheezing, no rales Cardiovascular: RRR, no significant murmur Gastrointestinal: soft, non-tender, no distention, positive bowel sounds Musculoskeletal: no edema, pulses present left hemiplegia Dx/Plan (1) Acute CVA (cerebrovascular accident) Code(s): I63.9 - CEREBRAL INFARCTION, UNSPECIFIED Status: Acute Comment: with left hemiplegia, s/p tPA and Kelly procedure (2) Hypertension, uncontrolled Code(s): I10 - ESSENTIAL (PRIMARY) HYPERTENSION Status: Acute (3) Substance abuse Code(s): F19.10 - OTHER PSYCHOACTIVE SUBSTANCE ABUSE, UNCOMPLICATED Status: Acute (4) Obesity Code(s): E66.9 - OBESITY, UNSPECIFIED Status: Chronic Qualifiers: Obesity classification: adult class 3 (BMI >= 40) Body mass index: BMI 40.0 -44.9 (5) Hypothyroidism Code(s): E03.9 - HYPOTHYROIDISM, UNSPECIFIED Status: Chronic Qualifiers: Hypothyroidism type: unspecified Qualified Code(s): E03.9 - Hypothyroidism , unspecified (6) Raised intracranial pressure Code(s): G93.2 - BENIGN INTRACRANIAL HYPERTENSION Status: Acute Comment: due to massive cva with edema, resolving (7) Hypernatremia Code(s): E87.0 - HYPEROSMOLALITY AND HYPERNATREMIA Status: Acute - Plan increase D5W to 100mls/hr -: per nursing last dose of mannitol was given on 23rd midnight -: is on decadron, cardene drip -: asp rectal, crestor, suggest no further mannitol unless for life threatenin -: weaning per pulm advice * . Review of Systems - Medications/Allergies Allergies/Adverse Reactions: Allergies Allergy/AdvReac Type Severity Reaction Status Date / Time Sulfa (Sulfonamide Allergy Verified 05/02/17 04:55 Antibiotics) Medications: Current Medications Acetaminophen (Tylenol) 650 mg PO Q6H PRN PRN Reason: fever/pain Lipase/Protease/Amylase ([place] [id number]) 1 cap FS .PER PROTOCOL PRN PRN Reason: TUBE OCCLUSION PROTOCOL Aspirin (Aspirin) 300 mg [place] DAILY MELVA Last Admin: 05/05/17 09:51 Dose: 300 mg Citalopram Hydrobromide (Celexa) 10 mg PO DAILY MELVA Last Admin: 05/05/17 09:51 Dose: 10 mg Dexamethasone (Decadron) 10 mg SLOW IVP 0500,1100,1700,2300 MELVA Last Admin: 05/05/17 05:30 Dose: 10 mg Docusate Sodium (Colace) 100 mg PO BID MELVA Last Admin: 05/05/17 09:51 Dose: 100 mg Nicardipine HCl 25 mg/ Sodium (Chloride) 250 mls @ 0 mls/hr IVPB INF MELVA; Titrate PRN Reason: Protocol Last Admin: 05/05/17 07:38 Dose: 250 mls Dextrose/Water (D5w) 500 mls @ 100 mls/hr IV .Q5H MELVA Mannitol (Mannitol) 25 gm IV 0500,1100,1700,2300 MELVA Last Admin: 05/05/17 05:29 Dose: Not Given Morphine Sulfate (Morphine) 4 mg SLOW IVP Q2H PRN PRN Reason: Pain Last Admin: 05/03/17 05:45 Dose: 4 mg Ondansetron HCl (Zofran) 4 mg IVP Q6H PRN PRN Reason: Nausea/Vomiting Last Admin: 05/03/17 05:45 Dose: 4 mg Pantoprazole Sodium (Protonix) 40 mg IVP 2100 MELVA Last Admin: 05/04/17 20:45 Dose: 40 mg Propofol (Diprivan) 1,000 mg IV INF PRN; Protocol PRN Reason: TO ACHIEVE RIOS SCORE 2-3 Stop: 06/02/17 20:44 Last Admin: 05/05/17 09:51 Dose: 1,000 mg Rosuvastatin Calcium (Crestor) 10 mg PO HS MELVA Last Admin: 05/04/17 20:45 Dose: 10 mg Sodium Bicarbonate (Bicarbonate, Sodium) 650 mg PER TUBE .PER PROTOCOL PRN PRN Reason: ENTERAL TUBE OCCLUSION Sodium Chloride (Flush - Normal Saline) 10 ml IV 2100 MELVA Last Admin: 05/04/17 20:45 Dose: 10 ml
--- NOTE | 2017-05-05 12:44 | PDOC.PULCC ---
CCU Progress Note: Subj/Obj - Subjective Date: 05/05/17 Time: 12:42 Subjective: Intubated. Taps with her Right hand, but I couldn't get her to follow commands - Objective Allergies/Adverse Reactions: Allergies Allergy/AdvReac Type Severity Reaction Status Date / Time Sulfa (Sulfonamide Allergy Verified 05/02/17 04:55 Antibiotics) Medications: Current Medications Acetaminophen (Tylenol) 650 mg PO Q6H PRN PRN Reason: fever/pain Lipase/Protease/Amylase ([place] [id number]) 1 cap FS .PER PROTOCOL PRN PRN Reason: TUBE OCCLUSION PROTOCOL Aspirin (Aspirin) 300 mg [place] DAILY [facility] Last Admin: 05/05/17 09:51 Dose: 300 mg Citalopram Hydrobromide (Celexa) 10 mg PO DAILY [facility] Last Admin: 05/05/17 09:51 Dose: 10 mg Dexamethasone (Decadron) 10 mg SLOW IVP 0500,1100,1700,2300 [facility] Last Admin: 05/05/17 11:19 Dose: 10 mg Docusate Sodium (Colace) 100 mg PO BID [facility] Last Admin: 05/05/17 09:51 Dose: 100 mg Nicardipine HCl 25 mg/ Sodium (Chloride) 250 mls @ 0 mls/hr IVPB INF MELVA; Titrate PRN Reason: Protocol Last Admin: 05/05/17 11:08 Dose: 250 mls Dextrose/Water (D5w) 500 mls @ 100 mls/hr IV .Q5H MELVA Last Admin: 05/05/17 11:09 Dose: 500 mls Mannitol (Mannitol) 25 gm IV 0500,1100,1700,2300 [facility] Last Admin: 05/05/17 11:20 Dose: Not Given Morphine Sulfate (Morphine) 4 mg SLOW IVP Q2H PRN PRN Reason: Pain Last Admin: 05/03/17 05:45 Dose: 4 mg Ondansetron HCl (Zofran) 4 mg IVP Q6H PRN PRN Reason: Nausea/Vomiting Last Admin: 05/03/17 05:45 Dose: 4 mg Pantoprazole Sodium (Protonix) 40 mg IVP 2100 MELVA Last Admin: 05/04/17 20:45 Dose: 40 mg Propofol (Diprivan) 1,000 mg IV INF PRN; Protocol PRN Reason: TO ACHIEVE RIOS SCORE 2-3 Stop: 01/22/18 20:44 Last Admin: 05/05/17 09:51 Dose: 1,000 mg Rosuvastatin Calcium (Crestor) 10 mg PO HS [facility] Last Admin: 05/04/17 20:45 Dose: 10 mg Sodium Bicarbonate (Bicarbonate, Sodium) 650 mg PER TUBE .PER PROTOCOL PRN PRN Reason: ENTERAL TUBE OCCLUSION Sodium Chloride (Flush - Normal Saline) 10 ml IV 2100 MELVA Last Admin: 05/04/17 20:45 Dose: 10 ml MAR Reviewed: Yes Vital Signs and I&O: Vital Signs Temp 99.5 F 05/05/17 11:54 Pulse 112 H 05/05/17 11:08 Resp 25 H 05/05/17 11:52 BP 146/103 H 05/05/17 11:08 Pulse Ox 100 05/05/17 08:00 Intake & Output 05/04/17 05/05/17 05/05/17 18:59 06:59 18:59 Intake Total 1494 1852 30 Output Total 1830 1145 690 Balance -336 707 -660 Weight 235 lb 12.8 oz Intake: Intake, IV Amount 1494 1437 Dextrose 5 % And 0.9 % 532 NaCl 1,000 ml @ 50 mls/hr IV .Q20H [facility] Rx#: [id number] Dextrose 5% in Water 500 173 606 ml @ 50 mls/hr IV .Q10H [facility] Rx#:[id number] Propofol 1000 mg IV .STK- 298 226 [facility] Rx#:[id number] niCARdipine HCl 25 mg In 491 605 Sodium Chloride 0.9% 250 ML 240 ml @ Titrate IVPB INF [facility] Rx#:[id number] Oral 0 Tube Feeding 235 Tube Irrigant 180 30 Output: Output, Rivera 1830 1145 690 Other: Voiding Method Indwelling Catheter Indwelling Catheter Indwelling Catheter # Bowel Movements 0 Vent Setting: SIMV 14/500/ peep 5/ ps10/ 30% Spontaneous Breathing Test: not done (pt not ready for sbt) CCU Progress Note: Exam - Physical Exam HEENT: PERRLA Neck: no nodes, no JVD Cardiovascular: RRR, no significant murmur, no rub Respiratory: clear to auscultation anteriorly Gastrointestinal: soft, non-tender Musculoskeletal: no edema Deviation from normal: left hemiplegia Lymphatic: no nodes Skin: no rash - Labs Result Diagrams: 05/05/17 05:00 05/05/17 05:00 Lab results: Laboratory Results - last 24 hr 05/04/17 05/05/17 05/05/17 20:03 05:00 05:00 WBC RBC Hgb Hct MCV MCH MCHC RDW Plt Count MPV Neutrophils % (Manual) Band Neuts % (Manual) Lymphocytes % (Manual) Monocytes % (Manual) Specimen Type Puncture Site Bicarbonate Actual ABG pH ABG pCO2 ABG pO2 ABG O2 Sat Calc/Imelda ABG O2 Content ABG Base Excess ABG Hematocrit ABG Hemoglobin ABG Oxyhemoglobin ABG Carboxyhemoglobin ABG Methemoglobin ABG Deoxyhemoglobin Romeo Test A-a O2 Gradient Ionized Calcium Mode of Support Mechanical Rate Inspired O2 Tidal Volume Pressure Support PEEP or CPAP Sodium 162 H* Potassium 3.8 Chloride 124 H Carbon Dioxide 23 Anion Gap 19 BUN 20 H Creatinine 1.32 H Estimated GFR (MDRD) 47 Glucose 157 H Serum Osmolality 336 H* 337 H* Calcium 9.9 Total Bilirubin 0.4 AST 14 ALT 15 Alkaline Phosphatase 113 Serum Total Protein 6.3 Albumin 4.1 Globulin 2.2 L Albumin/Globulin Ratio 1.9 05/05/17 05/05/17 05:00 08:13 WBC 39.3 H RBC 5.81 H Hgb 13.2 Hct 42.7 MCV 73.6 L MCH 22.7 L MCHC 30.8 L RDW 16.3 H Plt Count 510 H MPV 8.2 Neutrophils % (Manual) 85 H Band Neuts % (Manual) 7 Lymphocytes % (Manual) 4 L Monocytes % (Manual) 4 Specimen Type ARTERIAL Puncture Site RRA Bicarbonate Actual 21.2 L ABG pH 7.43 ABG pCO2 33.1 L ABG pO2 70.1 L ABG O2 Sat Calc/Imelda 95.9 ABG O2 Content 17.4 L ABG Base Excess -2.4 ABG Hematocrit 39.0 ABG Hemoglobin 13.2 ABG Oxyhemoglobin 94.2 ABG Carboxyhemoglobin 1.2 ABG Methemoglobin 0.6 ABG Deoxyhemoglobin 4.0 Romeo Test POSITIVE A-a O2 Gradient 104.525 H Ionized Calcium 1.4 H Mode of Support SIMV/PSV Mechanical Rate 14 Inspired O2 30 Tidal Volume 500 Pressure Support 10 PEEP or CPAP 5.0 Sodium 162 H Potassium 3.4 L Chloride 122 H Carbon Dioxide Anion Gap BUN Creatinine Estimated GFR (MDRD) Glucose Serum Osmolality Calcium Total Bilirubin AST ALT Alkaline Phosphatase Serum Total Protein Albumin Globulin Albumin/Globulin Ratio CCU Progress Note: A/P - Problems (1) Acute respiratory failure Current Visit: Yes Status: Acute Code(s): J96.00 - ACUTE RESPIRATORY FAILURE , UNSP W HYPOXIA OR HYPERCAPNIA (2) Acute CVA (cerebrovascular accident) Current Visit: Yes Status: Acute Code(s): I63.9 - CEREBRAL INFARCTION, UNSPECIFIED (3) Hypernatremia Current Visit: Yes Status: Acute Code(s): E87.0 - HYPEROSMOLALITY AND HYPERNATREMIA - Time Spent with Patient Time: 30 min cc time - Plan Plan: Neuro status precludes weaning pt started on D5W for severe hypernatremia related to mannitol use continue TF prognosis poor
[2017-05-05 17:28] LABS: ALT (SGPT) 21 U/L (8-55); AST (SGOT) 20 U/L (5-34); Alkaline Phosphatase 101 U/L (40-150); Anion Gap 15 mmol/L (10-20); BUN (Urea Nitrogen) 23 mg/dL (7.0-18.7); Bilirubin, Total 0.4 mg/dL (0.2-1.2); Calc. Creatinine Clearance 111 mL/min (70-130); Calcium 9.7 mg/dL (7.8-10.44); Carbon Dioxide 24 mmol/L (22-29); Chloride 127 mmol/L (98-107); Estimated GFR-MDRD 50; Globulin 2.7 g/dL (2.4-3.5); Protein, Total 6.5 g/dL (6.0-8.3)
[2017-05-05 18:23] LABS: Osmolality, Serum 338 mOsm/kg (280-295)
[2017-05-05] MEDS: Morphine 4 MG/ML VIAL SLOW IVP PRN (20:07)
[2017-05-05] MEDS: Pantoprazole 40 MG VIAL IVP SCH (20:09)
[2017-05-05] MEDS ORDERED: Sedation Protocol FS ONE (22:36)
[2017-05-05] MEDS ORDERED: Fentanyl 20 MCG/ML 250 ML IVPB SCH (22:42)
[2017-05-05] MEDS ORDERED: DISCONTINUE PREVIOUS NARCOTIC PAIN MEDICATIONS AND BENZODIAZEPINES FS SCH (22:42)
[2017-05-05] MEDS ORDERED: Propofol 1,000 MG/100 ML VIAL IV PRN (22:42)
[2017-05-05] MEDS ORDERED: Lorazepam 2 MG/ML VIAL SLOW IVP PRN (22:42)
[2017-05-05] MEDS ORDERED: Morphine 2 MG/ML SYRINGE IVP PRN (22:43)
[2017-05-05] MEDS ORDERED: Metoprolol Tartrate 25 MG TAB PO SCH (22:45)
[2017-05-05] MEDS: Metoprolol Tartrate 25 MG TAB PO SCH (23:15)
[2017-05-05] MEDS ORDERED: Sodium Chloride 0.9% 20 ML ONE (23:54)
[2017-05-05] MEDS ORDERED: Thrombin 5000 UNITS/5 ML VIAL ONE (23:55)
[2017-05-06] MEDS ORDERED: Midazolam HCl 2 mg/2 ml Vial ONE (00:03)
[2017-05-06] MEDS ORDERED: Fentanyl 250 MCG/5 ML VIAL ONE (00:03)
[2017-05-06] MEDS: Dextrose 5% in Water 500 ML IV SCH ×3 (00:10→05:45)
[2017-05-06] MEDS: CEFAZOLIN/Water 2 GM/20 ML SYRINGE SLOW IVP SCH ×2 (02:27→09:41)
[2017-05-06] MEDS: Dexamethasone 4 mg/ml Vial SLOW IVP SCH ×3 (04:34→17:00)
--- NOTE | 2017-05-06 04:38 | OP ---
DATE OF PROCEDURE: 05/06/2017 SURGEON: Hiren Cagle M.D. [employer] ARCHITECT: Dallas Gallego PROCEDURE: Right decompressive craniectomy. PROCEDURE IN DETAIL: The patient was brought into the operating room, intubated. She was positioned supine with the head turned to the left to expose the right frontotemporal region. A large curvilin ear fina shaped incision was made and the scalp was reflected anteriorly. A standard large craniotom y was performed. The dura was incised and reflected anteriorly and the brain was tense and under pre ssure. After immaculate hemostasis and irrigation the scalp was then closed in anatomic layers.
[2017-05-06 06:08] LABS: Osmolality, Serum 331 mOsm/kg (280-295)
[2017-05-06] MEDS: Mannitol 12.5 GM/50 ML IV SCH ×3 (06:09→17:00)
--- NOTE | 2017-05-06 06:11 | CON ---
NEPHROLOGY CONSULTE NOTE DATE OF CONSULTATION: 05/05/2017 CONSULTING PHYSICIAN: Dr. Cornell. REASON FOR CONSULTATION: Hypernatremia. REASON FOR ADMISSION: Weakness. HISTORY OF PRESENT ILLNESS: A 31-year-old female with history of hypertension, who came to the [facility] with weakness and found to have a CVA and currently in ICU, being treated for acute hypoxic respi ratory failure and CVA with elevated blood pressure and was given mannitol with resultant hyperosmola lity. was 338 and sodium of 162. Nephrology is consulted for hypernatremia and hyperosmolalit y. 05/03/2017. Patient also had neurosurgery evaluation. The patient had occlusion of the M 1 segment of the middle cerebral artery. The patient is intubated. No family members available. No history is available for the patient. PAST MEDICAL HISTORY: Hypertension, morbid obesity. PAST SURGICAL HISTORY: None. HOME MEDICATIONS: Lisinopril. ALLERGIES: SULFA. FAMILY HISTORY: No history of any CVA. SOCIAL HISTORY: No smoking, alcohol or illicit drug abuse. REVIEW OF SYSTEMS: Could not be obtained as intubated. PHYSICAL EXAMINATION: GENERAL: This is a morbidly obese -Monegasque female who was seen in ICU. VITAL SIGNS: Temperature 100.9, pulse 147, respiratory 20, blood pressure 189/105. HEENT: Intubated. CARDIOVASCULAR: S1, S2 heard. Tachycardia. RESPIRATORY: Clear. GASTROINTESTINAL: Abdomen is obese. MUSCULOSKELETAL: No edema. DERMATOLOGIC: No rash. NEUROLOGIC: Intubated and sedated. LABORATORY DATA: Sodium 162, potassium 3.8, chloride is 127, BUN is 23, creatinine is 1.25. ASSESSMENT AND PLAN: 1. Hyponatremia, agree with free water supplementation. We will increase as needed. We will also g ricardo free water through the NG tube as tolerated. 2. Hyperchloremia. 3. Hyperosmolality. 4. Acute kidney injury. Continue hydration. 5. Anemia, mild. 6. Leukocytosis. 7. Cerebrovascular accident. 8. Hypertension per primary team and Critical Care. Plan is to continue on free water as tolerated. Thank you for the consult.
[2017-05-06 06:29] LABS: Hematocrit 36.4 % (36.0-47.0); Mean Platelet Volume 8.7 fL (7.4-10.4); Red Blood Cell (RBC) Count 4.91 mill/uL (4.20-5.40); White Blood Cell (WBC) Count 24.8 thou/uL (4.8-10.8)
[2017-05-06 06:36] LABS: Anion Gap 15 mmol/L (10-20); BUN (Urea Nitrogen) 25 mg/dL (7.0-18.7); Calc. Creatinine Clearance 113 mL/min (70-130); Carbon Dioxide 24 mmol/L (22-29); Chloride 122 mmol/L (98-107); Estimated GFR-MDRD 51
[2017-05-06 07:30] LABS: Band 11 % (5-11); Hypochromia SLIGHT = 6-15 cells (100X) (0-5/hpf); Microcytosis SLIGHT = 6-15 cells (100X) (0-5/hpf); Neutrophil 72 % (42-75); Polychromasia SLIGHT = 2-3 cells (100X) (0-2/hpf); Promyelocytes 1 % (0-0); Reactive Lymphocytes 3 % (0-10); Target Cells SLIGHT = 2-5 cells (100X) (0-1/hpf)
[2017-05-06] MEDS: Metoprolol Tartrate 25 MG TAB PO SCH ×2 (09:00→20:26)
[2017-05-06 09:34] LABS: Oxyhemoglobin 96.2 % (94.0-97.0); Sodium 159 mmol/L (135-148)
--- NOTE | 2017-05-06 09:37 | PRG ---
DATE OF SERVICE: 05/06/2017 She is a 31-year-old female status post decompression craniotomy. No sedation, unresponsive. PHYSICAL EXAMINATION: VITAL SIGNS: Pulse 83, blood pressure 111/78, respirations 14. HEENT: Pupils are 2 mm. CHEST: Chest reveals decreased breath sounds, no wheezing. CARDIAC: Normal S1, S2. ABDOMEN: Soft, no masses. IMPRESSION: 1. Status post craniotomy, massive cerebrovascular accident. 2. Hypertension. 3. Electrolyte imbalance. LABORATORY: White count 24,000, H&H 11 and 38, platelet count 359. Sodium 157, BUN and creatinine 2 5 and 1.25. Osmolality 331. Unfortunately, there is no hypotonic fluid in the hospital, i.e., D5. Will try and initiate half normal saline if possible. Otherwise, continue Decadron, broad-spectrum antibiotics and supportive care. X-ray is being ordered. Continue nutrition. Prognosis is grave. One half hour critical care time.
[2017-05-06 09:38] LABS: Mechanical Tidal Volume 500 ml; Mode SIMV/PSV; Modified Allen's Test NOT DONE; Pressure Support 10 cmH2O; Vent YES
[2017-05-06] MEDS: Aspirin 300 MG Suppository PR SCH (09:40)
[2017-05-06] MEDS: Docusate 100 MG CAP PO SCH ×2 (09:41→20:26)
[2017-05-06] MEDS: Citalopram 20 MG TAB PO SCH (09:41)
--- NOTE | 2017-05-06 10:14 | PRG ---
DATE OF SERVICE: 05/06/2017 SUBJECTIVE: The patient was seen and examined in ICU at bedside, remains intubated and not respondin g, bedside nurse updated and plan discussed. Respiratory therapy also at the bedside. OBJECTIVE: GENERAL: This is an obese female seen in ICU, intubated. VITAL SIGNS: Temperature 97.6, pulse 84, respiratory rate 14, blood pressure 108/74. HEENT: Intubated. CARDIOVASCULAR: S1, S2 heard. RESPIRATORY: Clear. ABDOMEN: Abdomen is soft. MUSCULOSKELETAL: 1+ edema. DERMATOLOGIC: No skin rash. NEUROLOGIC: Not responding and intubated currently. LABORATORY DATA: Sodium 157, potassium 3.5, chloride is 122, BUN 25, creatinine is 1.24. ASSESSMENT AND PLAN: 1. Hypernatremia with sodium level of 157 today, better than 162. We will continue on current manag ement. We will increase the D5 water to 150 mL per hour and also free water flushes. 2. Hyperchloremia. 3. Hyperosmolality after the mannitol infusion. 4. Acute kidney injury, stable. Continue hydration. 5. History of cerebrovascular accident, follow with Neurosurgery. Overall, prognosis remains poor. We will continue current management and monitor sodium closely. We will recheck labs in the evening. We will follow.
[2017-05-06] MEDS: D5 1/4 NS 1,000 ML IV SCH ×3 (10:30→19:20)
--- NOTE | 2017-05-06 11:45 | PDOC.PN ---
- Subjective Encounter Start Date: 05/06/17 Encounter Start Time: 11:20 Subjective: on vent, not awake, is not sedated -: had decompressive craniotomy last night for suspected herniation/raised ICP - Objective MAR Reviewed: Yes Vital Signs & Weight: Vital Signs (12 hours) Temp Pulse Resp 05/06/17 10:00 14 05/06/17 08:00 97.6 F 84 14 05/06/17 06:00 14 05/06/17 04:00 16 05/06/17 03:56 98.1 F 05/06/17 02:00 16 Weight Admit Weight 257 lb Weight 237 lb 14.06 oz Most Recent Monitor Data Heart Rate from ECG 81 NIBP 102/73 NIBP BP-Mean 93 Respiration from ECG 14 SpO2 100 I&O: 05/05/17 05/06/17 05/07/17 06:59 06:59 06:59 Intake Total 3346 5508 961 Output Total 2975 2840 1200 Balance 371 2668 -239 Result Diagrams: 05/06/17 05:50 05/06/17 05:50 Phys Exam - Physical Examination HEENT: moist MMs, sclera anicteric Neck: no JVD, supple Respiratory: no wheezing, no rales Cardiovascular: RRR, no significant murmur Gastrointestinal: soft, non-tender, no distention, positive bowel sounds Musculoskeletal: no edema, pulses present is not moving any extremity Dx/Plan (1) Acute CVA (cerebrovascular accident) Code(s): I63.9 - CEREBRAL INFARCTION, UNSPECIFIED Status: Acute Comment: with left hemiplegia, s/p tPA and Kelly procedure (2) Hypertension, uncontrolled Code(s): I10 - ESSENTIAL (PRIMARY) HYPERTENSION Status: Resolved (3) Substance abuse Code(s): F19.10 - OTHER PSYCHOACTIVE SUBSTANCE ABUSE, UNCOMPLICATED Status: Acute (4) Obesity Code(s): E66.9 - OBESITY, UNSPECIFIED Status: Chronic Qualifiers: Obesity classification: adult class 3 (BMI >= 40) Body mass index: BMI 40.0 -44.9 (5) Hypothyroidism Code(s): E03.9 - HYPOTHYROIDISM, UNSPECIFIED Status: Chronic Qualifiers: Hypothyroidism type: unspecified Qualified Code(s): E03.9 - Hypothyroidism , unspecified (6) Raised intracranial pressure Code(s): G93.2 - BENIGN INTRACRANIAL HYPERTENSION Status: Acute Comment: due to massive cva with edema, s/p decompressive craniotomy 05/06/2017 (7) Hypernatremia Code(s): E87.0 - HYPEROSMOLALITY AND HYPERNATREMIA Status: Acute - Plan prognosis guarded, not on sedation, is not seen moving any extre and obtund -: -ed, pupils are around 5 mm and not reacting to light, sbp around 90-100 -: reconsult neurology for input, repeat CT to see if she bled/reinfarcted -: d5w at 150mls/hr-pharmacy to arrange this as pt is in a critical state -: is on decadron, off cardene from last night * . Review of Systems - Medications/Allergies Allergies/Adverse Reactions: Allergies Allergy/AdvReac Type Severity Reaction Status Date / Time Sulfa (Sulfonamide Allergy Verified 05/02/17 04:55 Antibiotics) Medications: Current Medications Acetaminophen (Tylenol) 650 mg PO Q6H PRN PRN Reason: fever/pain Lipase/Protease/Amylase (Tyler Dorsey [id number]) 1 cap FS .PER PROTOCOL PRN PRN Reason: TUBE OCCLUSION PROTOCOL Aspirin (Aspirin) 300 mg VT DAILY [facility] Last Admin: 05/06/17 09:40 Dose: Not Given Citalopram Hydrobromide (Celexa) 10 mg PO DAILY [facility] Last Admin: 05/06/17 09:41 Dose: 10 mg Dexamethasone (Decadron) 10 mg SLOW IVP 0500,1100,1700,2300 [facility] Last Admin: 05/06/17 04:34 Dose: 10 mg Docusate Sodium (Colace) 100 mg PO BID [facility] Last Admin: 05/06/17 09:41 Dose: 100 mg Nicardipine HCl 25 mg/ Sodium (Chloride) 250 mls @ 0 mls/hr IVPB INF [facility]; Titrate PRN Reason: Protocol Last Admin: 05/05/17 21:38 Dose: 250 mls Fentanyl (Fentanyl Cadd) 250 mls @ 0 mls/hr IVPB INF [facility]; Titrate PRN Reason: Protocol Stop: 06/04/17 22:42 Fentanyl Citrate (Fentanyl Bolus) 250 mls @ 0 mls/hr IVPB PRN PRN; As Directed PRN Reason: Breakthrough pain Stop: 06/04/17 22:42 Dextrose/Sodium Chloride (D5 1/4 Ns) 1,000 mls @ 150 mls/hr IV .Q6H40M [facility] Lorazepam (Ativan) 2 mg SLOW IVP Q2H PRN PRN Reason: Anxiety to achieve Rios 2-3 Stop: 06/04/17 22:42 Mannitol (Mannitol) 25 gm IV 0500,1100,1700,2300 [facility] Last Admin: 05/06/17 06:09 Dose: Not Given Metoprolol Tartrate (Lopressor) 25 mg PO BID [facility] Last Admin: 05/06/17 09:00 Dose: Not Given Morphine Sulfate (Morphine) 4 mg SLOW IVP Q2H PRN PRN Reason: Pain Last Admin: 05/05/17 20:07 Dose: 4 mg Morphine Sulfate (Morphine) 2 mg IVP Q2H PRN PRN Reason: Breakthrough pain Stop: 06/04/17 22:44 Discontinue Previous Narcotic Pain Medications And Benzodiazepines 1 each FS .ONE [facility] Stop: 06/04/17 22:42 Ondansetron HCl (Zofran) 4 mg IVP Q6H PRN PRN Reason: Nausea/Vomiting Last Admin: 05/03/17 05:45 Dose: 4 mg Pantoprazole Sodium (Protonix) 40 mg IVP 2100 [facility] Last Admin: 05/05/17 20:09 Dose: 40 mg Propofol (Diprivan) 1,000 mg IV INF PRN; Protocol PRN Reason: TO ACHIEVE RIOS SCORE 2-3 Stop: 06/02/17 20:44 Last Admin: 05/05/17 20:09 Dose: 1,000 mg Propofol (Diprivan) 1,000 mg IV INF PRN; Protocol PRN Reason: TO ACHIEVE RIOS SCORE 2-3 Stop: 06/04/17 22:42 Rosuvastatin Calcium (Crestor) 10 mg PO HS [facility] Last Admin: 05/05/17 20:09 Dose: 10 mg Sodium Bicarbonate (Bicarbonate, Sodium) 650 mg PER TUBE .PER PROTOCOL PRN PRN Reason: ENTERAL TUBE OCCLUSION Sodium Chloride (Flush - Normal Saline) 10 ml IV 2100 [facility] Last Admin: 05/05/17 20:09 Dose: 10 ml
[2017-05-06 12:08] VITALS: BP 100/77
[2017-05-06 12:36] LABS: Osmolality, Serum 337 mOsm/kg (280-295)
[2017-05-06 12:51] VITALS: TEMP 97.5
--- NOTE | 2017-05-06 13:52 | CT ---
NONCONTRAST HEAD CT: Date: 05/06/17 COMPARISON: 05/04/17. HISTORY: Patient had craniotomy flap done yesterday. Follow-up exam. Massive CVA. Patient is comatose. TECHNIQUE: Noncontrast head CT is performed from skull base to skull vertex. FINDINGS: Postsurgical changes compatible with right frontotemporal craniectomy. There is herniation of the rig ht frontal and temporal lobe through the defect. There is extensive loss of su-white matter differe ntiation involving the majority of cerebrum. Basilar cisterns, as well as the ambient cisterns are ef faced. There is a subtle hyperdensity in the medial left frontal lobe region which may represent a 7. 0 mm hemorrhage. There is marked [id number] subfalcine herniation of approximately 2.0 cm. There are postsurgical changes in the overlying right frontal and temporal scalp/soft tissues. IMPRESSION: 1. Postsurgical changes as detailed above. 2. Herniation of the right frontal and temporal lobes through the craniectomy defect. 3. Diffuse loss of su-white matter differentiation suggesting extensive ischemic change in the cer ebrum. 4. Redemonstration of small hemorrhagic focus in the left frontal region. Results of study discussed with Chantal, the patient's nurse, on 05/06/17 at 1459 hours. CODE CR. POS: [facility]
[2017-05-06 14:12] VITALS: BMI 37.2
--- NOTE | 2017-05-06 16:43 | NM ---
RADIONUCLIDE CEREBRAL BLOOD FLOW STUDY: History: Severe CVA. Clinical brain . FINDINGS: Spot images of the cranium show increased uptake at the nasal mucosa. There is diffuse decrease of up take within the cranium. IMPRESSION: Absence of cerebral blood flow. POS: [facility]
[2017-05-06 18:18] LABS: Oxyhemoglobin 95.9 % (94.0-97.0); Sodium 162 mmol/L (135-148)
[2017-05-06 18:27] LABS: Oxyhemoglobin 97.9 % (94.0-97.0); Sodium 161 mmol/L (135-148)
[2017-05-06 18:33] LABS: Mechanical Tidal Volume 500 ml; Modified Allen's Test POSITIVE; Pressure Support 10 cmH2O; Vent YES
[2017-05-06 18:34] LABS: Osmolality, Serum 340 mOsm/kg (280-295)
[2017-05-06 18:38] LABS: Mode SIMV
[2017-05-06 18:40] LABS: Mode APNEA TEST; Modified Allen's Test POSITIVE
[2017-05-06 18:43] LABS: Anion Gap 13 mmol/L (10-20); BUN (Urea Nitrogen) 28 mg/dL (7.0-18.7); Calc. Creatinine Clearance 118 mL/min (70-130); Calcium 9.8 mg/dL (7.8-10.44); Carbon Dioxide 23 mmol/L (22-29); Chloride 129 mmol/L (98-107); Estimated GFR-MDRD 53
[2017-05-06] MEDS: Pantoprazole 40 MG VIAL IVP SCH (20:26)
[2017-05-07 09:12] LABS: U1RNP/snRNP IGG Autoabs 3.6 AI (0.0-0.9)
--- NOTE | 2017-05-07 13:07 | DS ---
DATE OF : 05/06/2017. She was declared brain at around 6:[address] Cagle. PRIMARY CAUSE OF : Large right MCA infarct from last 5 days, brain from last 24 hours, hy pertensive urgency on arrival and obesity. SECONDARY CAUSE `OF : Raised intracranial pressure due to massive CVA, hypothyroidism, hypernat remia. PROCEDURES DONE DURING HOSPITALIZATION: The patient had initial CT brain done showed no acute intrac ranial abnormalities. A CT angiogram of the head and neck showed possible dissection of intracanalic ular portion of right XOCHITL with occlusion of the apex of the origin of right MCA and right ophthalmic artery. There was decreased cerebral blood volume and cerebral blood flow through the right MCA dist ribution consistent with an infarct with no surrounding regional salvage of the ischemic tissue. The re was loss of su-white junction in the right frontal and parietal regions. The patient has had ce rebral angiography with mechanical thrombectomy attempted by Dr. Dany Ireland on 05/02/2017. 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 Following mechanical thrombectomy, flow was restored into distal ICA as well as the right A1 segment of the anterior cerebral artery. The flow could not be re stored into the middle cerebral artery on the right side. Echo with 2D Doppler showed EF of 50-55%, no thrombus was seen in the cardiac chambers. MRI done on 05/03/2017, showed large XOCHITL and MCA distr ibution area of stroke with acute edema and midline shift from right to left. CT brain done on 05/04, showed evolving right MCA and presumed anterior cerebral artery territorial infarcts, question of faint hemorrhagic conversion with midline shift to the left of approximately 7 mm were seen. On 05/06/2017, the patient has had right decompressive craniectomy done for raised intracranial pressure and impending herniation. Brain flow nuclear study done showed absence of cerebral blood flow. A C T brain done on 05/06/2017, showed herniation of the right frontal and temporal lobes through the ship scraper niectomy defect. There was diffuse loss of su white matter differentiation suggesting extensive is chemic changes in the cerebrum. Discharge sodium levels of 161, BUN 28, creatinine 1.1. Acute hepat itis panel was negative. DENICE was positive, SSA IgG was 6.4. Urine drug screen was positive for amph etamines. BRIEF COURSE DURING HOSPITALIZATION: Patient got admitted on the after she had severe weakness and left upper and lower extremity around 2:00 a.m. on the . She also had a headache while at wo rk, the previous day. On arrival, the patient had a blood pressure 184/124 with left hemiparesis. A s she was within the window, she was given TPA. The patient was placed on Cardene drip and was admit kristen to ICU. Patient did not have much improvement with TPA and her CT angiogram of the head and neck done showed a possible dissection of right ICA with occlusion of the right MCA distribution and righ t ophthalmic artery. In view of this, Dr. Dany Dudley for intervention Neurosurgery was cons ulted. The patient was taken to the [facility] and has had angiogram done with opening up of internal carotid artery, but flow in the right MCA could not be restored. Patient continued to remain in ICU with her blood pressures remaining stable on Cardene drip. On the evening, patient dropped her blood pressures and became more obtunded. She was immediately taken to operating room for suspected herniation. She has had craniectomy done to relieve the pressure. On the , the patient did not have a gag reflex and was not moving any extremity. She became more obtunded. She was off sedation for nearly 8 hours with no clinical response to any stimulation. Her pupils were 6 mm and were not r eacting. In view of this, a repeat CT was obtained, which showed a midline shift with herniation of brain through the craniectomy defect. The cerebral blood flow nuclear scan was obtained, which showe d no blood flow to the cerebrum Dr. Cagle declared her brain around 6:45 p.m. Family natalia aceves contemplated about transplant, but later refused to have the same done. Her body will be release d to home and family per hospital protocol.
[2017-05-08 13:04] LABS: Protein C Activity 203 % (78-152)
== END 2017-05-06 18:31 | disposition expired | DRG 23 ==
LOC: ERS 02:53 → CCU 08:16
PROVIDERS: ADMIT Internal Medicine; ATTEND Internal Medicine
PROC: 3E03317 Introduction of Other Thrombolytic into Peripheral Vein, Percutaneous Approach (ICD-10-PCS; 2017-05-02)
PROC: B31R1ZZ Fluoroscopy of Intracranial Arteries using Low Osmolar Contrast (ICD-10-PCS; 2017-05-02)
PROC: 0BH18EZ Insertion of Endotracheal Airway into Trachea, Via Natural or Artificial Opening Endoscopic (ICD-10-PCS; 2017-05-03)
PROC: 0BJ08ZZ Inspection of Tracheobronchial Tree, Via Natural or Artificial Opening Endoscopic (ICD-10-PCS; 2017-05-03)
PROC: 5A1945Z Respiratory Ventilation, 24-96 Consecutive Hours (ICD-10-PCS; 2017-05-03)
PROC: B030ZZZ Magnetic Resonance Imaging (MRI) of Brain (ICD-10-PCS; 2017-05-03)
PROC: 00N00ZZ Release Brain, Open Approach (ICD-10-PCS; principal; 2017-05-06)
DX: I63.311 Cerebral infarction due to thrombosis of right middle cerebral artery (principal); G93.6 Cerebral edema; G93.5 Compression of brain; I61.9 Nontraumatic intracerebral hemorrhage, unspecified; I63.031 Cerebral infarction due to thrombosis of right carotid artery; N17.9 Acute kidney failure, unspecified; E87.0 Hyperosmolality and hypernatremia; G81.94 Hemiplegia, unspecified affecting left nondominant side; E66.01 Morbid (severe) obesity due to excess calories; E87.8 Other disorders of electrolyte and fluid balance, not elsewhere classified; D64.9 Anemia, unspecified; I16.0 Hypertensive urgency; G93.2 Benign intracranial hypertension; E03.9 Hypothyroidism, unspecified; D72.829 Elevated white blood cell count, unspecified; F19.10 Other psychoactive substance abuse, uncomplicated; Z68.37 Body mass index [BMI] 37.0-37.9, adult; Z88.2 Allergy status to sulfonamides
CPT/HCPCS: 0042T; 36216; 36223; 36415; 51702; 70450; 70496; 70551; 71010; 76942; 78610; 80048; 80053; 80074; 80306; 80307; 81003; 81015; 81240; 82550; 82553; 82805; 83090; 83690; 83880; 83930; 84439; 84443; 84481; 84484; 84703; 85007; 85025; 85027; 85240; 85300; 85303; 85305; 85307; 85379; 85598; 85610; 85660; 85730; 86038; 93005; 93306; 94002; 94003; 96365; 96366; 96375; 99292; A4216; A9521; C1757; C1769; C1887; C9113; G8987-GO-CN; G8988-GO-CJ; G9162-GN-CM; G9163-GN-CK; J1100; J1644; J2001; J2150; J2250; J2270; J2405; J2704; J2997; J3010; J3490; J7050; J7070